=== PATIENT | female | born 1980 | race Caucasian/White ===

== ENCOUNTER 2020-11-13 12:31 | Emergency (ER) | payer MEDICAID, SELFPAY ==
[~2020-11-13] VITALS: Ht 167.6 cm; Wt 70.3 kg
[2020-11-13 12:41] VITALS: BP 136/91
[2020-11-13] MEDS: ACETAMINOPHEN EXTRA STRENGTH 500 MG TAB PO ONE ×2 (13:07→13:10)
--- NOTE | 2020-11-13 13:10 | NUR ---
LAWRENCE AGUDELO SAMPLE COLLECTED AND HANDED TO SHAMPOO PERSON
--- NOTE | 2020-11-13 13:11 | NUR ---
39 Y/O FEMALE C/O HEADACHE X 3 DAYS PT ALSO C/O COUGH LEFT CHEST PAIN X TODAY. PT RATES CHEST PAIN 9/10 THAT SHE DESCRIBES STABBING AND NONRADIATING. PT TOOK EXCEDIN YESTERDAY WITH NO RELIEF. DENIES N/V. +LACK OF APPETITE. PT STATES THAT HER CO WORKER TESTED POSITIVE FOR COVID AND NOW IS WORRIED. PT IS NOT VACCINATED. PT A/O X4 WITH EVEN AND UNLABORED RESPIRATIONS PMH: HTN, GALL BLADDER REMOVAL NKDA
[2020-11-13] MEDS ORDERED: ALBU0.0912 IH (13:57)
[2020-11-13] MEDS ORDERED: PROM118S5 PO (13:57)
[2020-11-13] MEDS ORDERED: ACET-10509 PO (13:57)
--- NOTE | 2020-11-13 14:01 | NUR ---
Patient discharged with v/s stable. Written and verbal after care instructions given and explained. Patient alert, oriented and verbalized understanding of instructions. Ambulatory with steady gait. All questions addressed prior to discharge. ID band removed. Patient advised to follow up with PMD. Rx of Tylenol, Albuterol and Promethazine-DM given. Patient educated on indication of medication including possible reaction and side effects. Opportunity to ask questions provided and answered.
== END 2020-11-13 14:01 | disposition home or self-care (01) ==
LOC: MED 12:31
DX: U07.1 COVID-19 (principal)
CPT/HCPCS: 71045; 99284

== ENCOUNTER 2020-11-16 14:33 | Emergency (ER) | payer MEDICAID, SELFPAY ==
[~2020-11-16] VITALS: Ht 167.6 cm; Wt 70.3 kg
[~2020-11-16 14:33] MED LIST: ACET-10509 PO; ALBU0.0912 IH; PROM118S5 PO
[2020-11-16 14:55] VITALS: BP 131/78
[2020-11-16] MEDS ORDERED: ACET-8386 PO ×2 (15:17→15:19)
[2020-11-16] MEDS ORDERED: PRED20TA5 PO ×2 (15:17→15:19)
[2020-11-16] MEDS ORDERED: IBUP-2213 PO ×2 (15:17→15:19)
[2020-11-16] MEDS ORDERED: ONDA8TAB87 PO ×2 (15:17→15:19)
--- NOTE | 2020-11-16 15:25 | NUR ---
No nursing interventions performed.
--- NOTE | 2020-11-16 15:28 | NUR ---
Patient discharged with v/s stable. Written and verbal after care instructions given and explained. Patient alert, oriented and verbalized understanding of instructions. Ambulatory with steady gait. All questions addressed prior to discharge. ID band removed. Patient advised to follow up with PMD. Rx of Hydrocodone/Acetaminophen, Ibuprofen, Zofran, Prednisone given. Patient educated on indication of medication including possible reaction and side effects. Opportunity to ask questions provided and answered.
== END 2020-11-16 15:28 | disposition home or self-care (01) ==
LOC: MED 14:33
DX: U07.1 COVID-19 (principal); R07.89 Other chest pain; I10 Essential (primary) hypertension; Z79.899 Other long term (current) drug therapy; Z90.49 Acquired absence of other specified parts of digestive tract
CPT/HCPCS: 99283

== ENCOUNTER 2021-10-16 00:52 | Emergency (ER) | payer MEDICAID ==
[~2021-10-16 00:52] MED LIST changes: +ACET-8386 PO; +IBUP-2213 PO; +ONDA8TAB87 PO; +PRED20TA5 PO
--- NOTE | 2021-10-16 01:27 | NUR ---
CALLED TO TRIAGE, NO ANSWER
--- NOTE | 2021-10-16 01:32 | NUR ---
INFORMED BY ADMITTING THAT PT LEFT. LWBS
== END 2021-10-16 01:27 | disposition left against medical advice (07) ==
LOC: MED 00:52
DX: R07.9 Chest pain, unspecified (principal); Z53.21 Procedure and treatment not carried out due to patient leaving prior to being seen by health care provider